=== PATIENT | female | born 1965 | race Caucasian/White ===

== ENCOUNTER → 2018-05-16 | Outpatient (CLI) | payer BC ==
[~2018-05-16] MED LIST: AMLODIPINE BESYL5 MG PO; ASPIRIN CHILDRE81 MG PO; ATENOLOL25 MG PO; LEVOTHYROXIN0.125 M1 PO; METOPROLOL TART50 M1 PO; Motrin,Rufen800 MG PO; NAPROSYN500 MG PO; PEPCID20 MG PO; PHENERGAN25 M1 PO; PRAVASTATIN SOD10 MG PO; VITAMINS FOR HA1 CAP PO; Zofran4 MG PO
[2018-05-16 08:37] LABS: CREATININE 0.77 mg/dL (0.55-1.02)
== END | disposition home or self-care (01) ==
LOC: CT 04-26 08:00 → LAB 08:08
PROVIDERS: Radiology Diagnostic Radiology
DX: K76.0 Fatty (change of) liver, not elsewhere classified (principal); N20.0 Calculus of kidney; E66.9 Obesity, unspecified; D35.00 Benign neoplasm of unspecified adrenal gland; Z85.850 Personal history of malignant neoplasm of thyroid

== ENCOUNTER 2018-08-18 09:07 | Inpatient (IN) | payer BC ==
[~2018-08-18] VITALS: Ht 167.6 cm; Wt 101.7 kg
--- NOTE | ~2018-08-18 | WRIGHTHP ---
[place], [place] PATIENT HISTORY AND PHYSICAL EXAM NAME: [id number] UNIT #: [id number] ROOM: 426 DOCTOR: MARINE FITZGERALD MD BIRTHDATE: [birth year] DOS: 08/18/2018 HISTORY OF PRESENT ILLNESS: The patient is a 53-year-old female with a past medical history of: 1. Hypertension. 2. Thyroidectomy for cancer of the thyroid and hypothyroidism. 3. History of gastroparesis. 4. Hyperlipidemia. 5. Obesity, BMI of 36.2. The patient presented to the Emergency Department with recurrent right-sided chest discomfort and tingling and numbness in her right upper extremity and lower extremity with some nausea. The patient still feels some numbness and tingling in the right upper extremity. The patient's cardiac enzymes have been negative and she has no history of coronary artery disease in her immediate family, but her dad's relatives do have coronary artery disease. REVIEW OF SYSTEMS: CARDIOVASCULAR SYSTEM: Recurrent right-sided chest pains. GASTROINTESTINAL: No nausea, vomiting, diarrhea or constipation. RESPIRATORY: No increasing shortness of breath or wheezing. ALLERGIES: Known allergies to PENICILLIN, SULFUR and VANCOMYCIN. PHYSICAL EXAMINATION: GENERAL: Alert and oriented x 3, moderately obese, in no visible distress. HEENT AND NECK: Extraocular movements are intact. Sclerae are anicteric. Oral mucosa is moist and clean. No obvious facial weakness. Neck is supple without any lymphadenopathy. No thyromegaly. No JVD. No carotid arterial bruits. LUNGS: Clear to auscultation. No wheezing. No rhonchi. CARDIOVASCULAR SYSTEM: Heart rate is regular in rate and rhythm. S1 and S2 normally audible. No significant murmur or any other abnormal cardiac sounds. ABDOMEN: Soft, nontender. No obvious organomegaly. Bowel sounds are present. No obvious herniation. EXTREMITIES: Without significant cyanosis or edema. Warm to touch. CENTRAL NERVOUS SYSTEM: Alert and oriented x 3. Cranial nerves II-XII are intact. Speech is normal. The patient is able to move all extremities. Normal muscle strength. Deep tendon reflexes are equal on both sides. Plantars were downgoing. LABORATORY DATA: Negative cardiac enzymes x 2. Normal CBC. IMPRESSION AND PLAN: 1. Chest pains from uncertain etiology. The patient's EKG and cardiac enzymes are normal. The patient has been scheduled for a cardiac stress test in the morning and if negative, she can be discharged to home safely after that. 2. Hypothyroidism. The patient continued on thyroid supplements. 3. History of benign essential hypertension. The patient already on amlodipine and metoprolol, which have been continued and her blood pressures have been normal. [place], [place] PATIENT HISTORY AND PHYSICAL EXAM NAME: MARIBEL LAWRENCE UNIT #: [id number] ROOM: 426 DOCTOR: MARINE FITZGERALD MD BIRTHDATE: [birth year] 4. Obesity. The patient with a BMI of 36, to work with Dietary. MARINE FITZGERALD MD CM:HISPHYS:PATIENT HISTORY AND PHYSICAL EXAMINATION 28 43 MARINE FITZGERALD MD 08/18/182044 interface
--- NOTE | ~2018-08-18 | EKG ---
[place], [place] ELECTROCARDIOGRAM REPORT NAME: MARIBEL LAWRENCE UNIT #: [id number] ROOM: 426 DOCTOR: STEVEN DRAFT REPORT BIRTHDATE: [birth year] [facility] Test Date: 2018-08-18 Test Time: 09:39:19 Pat Name: MARIBEL LAWRENCE Department: Room: 426 Gender: F Doughnut Maker: : 1965 Requested By: MIKE HERCULES Order Number: [id number] Reading MD: Gary Grossman MD Measurements Intervals [place] Rate: 68 P: 55 IN: 154 QRS: 17 QRSD: 107 T: 38 QT: 421 QTc: 448 Interpretive Statements Sinus rhythm RSR' in V1 or V2, right VCD or RVH Electronically Signed On 08-29-2018 8:03:41 PDT by Gary Grossman MD CM:EKGRPT:ELECTROCARDIOGRAM REPORT [id number] MIKE HOLLAND DRAFT REPORT MIKE HERCULES DO
--- NOTE | ~2018-08-18 | DS ---
[place], [place] DISCHARGE SUMMARY NAME: MARIBEL LAWRENCE UNIT #: [id number] ROOM: 426 DOCTOR: MARINE FITZGERALD MD BIRTHDATE: [birth year] DOS: 08/19/2018 HOSPITAL COURSE: The patient underwent cardiac stress test. Nuclear scan results are still pending. If normal, she will be discharged to home. Cardiac enzymes were negative. 1. Obesity, BMI of 36.2. The patient is working on diet. 2. History of gastroparesis. 3. Mixed hyperlipidemia. 4. History of thyroidectomy for cancer of the thyroid and hypothyroidism. 5. Benign essential hypertension. The patient presented with right-sided chest discomfort and tingling off and on and she was admitted. Cardiac enzymes were checked to be negative and the patient underwent cardiac stress testing. Nuclear scan results are still pending. If normal, she will be discharged to home. 6. Coronary artery disease of the [place] vessels in the family from her father's side, although father does not have any diagnosis of coronary artery disease, but it does run in her family. 7. Hypothyroidism, replaced with supplements. 8. Benign essential hypertension with controlled blood pressures with amlodipine and metoprolol. LABORATORY DATA: CT of the head was normal. Normal serum electrolytes, bilirubin, liver enzymes, normal CBC. DISCHARGE MANAGEMENT: Simvastatin 5 mg daily, aspirin 81 mg a day, amlodipine 5 mg daily, levothyroxine 125 mcg daily, metoprolol 50 mg b.i.d. MARINE FITZGERALD MD CM:CED 1005 [id number] MARINE FITZGERALD MD 08/19/18 1600 interface
--- NOTE | ~2018-08-18 | ST ---
[place], [place] EXERCISE STRESS TEST REPORT NAME: MARIBEL LAWRENCE UNIT #: [id number] ROOM: 426 DOCTOR: MARINE FITZGERALD MD BIRTHDATE: [birth year] DOS: 08/19/2018 The patient is a 53-year-old female, presently admitted to [place] [facility] for recurrent chest pains. All her cardiac enzymes were negative and the patient was exercised on a Glenn protocol. She exercised for a total of 8 minutes, reaching a peak heart rate of 157 beats per minute, which was 93% of the PMHR. The Cardiolite was injected during the peak phase of exercise. Maximum blood pressure was 178 systolic over 88 diastolic. The patient's peak MET level was 10. The patient's baseline EKG showed normal sinus rhythm at the heart rate of 69 beats per minute. Normal cardiac axis, no significant ST-T abnormality. During the exercise and recovery phase, the patient did not develop any EKG abnormality compatible with myocardial ischemia. There were no angina-like symptoms. IMPRESSION: Normal EKG part of the treadmill Cardiolite stress test at 93% PMHR. Cardiolite results to be reported by Dr. Villalba later today. MARINE FITZGERALD MD CM:STRESS:EXERCISE STRESS TEST REPORT [id number] MARINE FITZGERALD MD
[2018-08-18 09:10] VITALS: BP 129/76
[2018-08-18 09:47] LABS: BASO # 0.1 10*3/uL (0.0-0.1); BASO % 0.6 % (0.0-1.0); EOS # 0.2 10*3/uL (0.0-0.4); EOS % 2.5 % (1.0-4.0); HEMATOCRIT 43.9 % (37.0-47.0); HEMOGLOBIN 14.8 g/dl (12.0-16.0); LYMPH # 1.8 10*3/uL (1.3-4.4); MEAN CELL VOLUME 90.3 fl (81.0-99.0); MEAN CORPUSCULAR HGB 30.5 pg (27.0-31.0); MEAN CORPUSCULAR HGB CONC 33.7 g/dl (33.0-37.0); MEAN PLATELET VOLUME 10.6 fl (9.6-12.3); MONO # 0.5 10*3/uL (0.1-1.0); MONO % 5.9 % (3.0-9.0); NEUT # 5.3 10*3/uL (2.3-7.9); NEUT % 67.7 % (47.0-73.0); PLATELET COUNT AUTOMATED 258 10*3/uL (130-400); RED BLOOD COUNT 4.86 10*6/uL (4.10-5.10); RED CELL DISTRI WIDTH 12.4 % (0-14.5); WHITE BLOOD COUNT 7.9 10*3/uL (4.8-10.8)
[2018-08-18 09:59] LABS: ACT PARTIAL THROMBO TIME 25.1 SECONDS (20.8-31.5)
[2018-08-18 10:03] LABS: ALKALINE PHOSPHATASE 103 U/L (45-117); BUN 12 mg/dl (7-24); CHLORIDE 103 mmol/L (98-107); CREATININE 0.78 mg/dL (0.55-1.02); LIPASE 96 U/L (73-393); POTASSIUM 3.6 mmol/L (3.5-5.1); SGOT/AST 36 IU/L (3-35); SGPT/ALT 65 U/L (12-78); SODIUM 139 mmol/L (136-145); TOTAL PROTEIN 7.9 gm/dL (6.4-8.2); TROPONIN I < 0.015 ng/ml (<0.045)
[2018-08-18 11:46] VITALS: BP 141/79
[2018-08-18 12:14] VITALS: BP 157/95
[2018-08-18 12:30] VITALS: BP 157/95
[2018-08-18 16:00] VITALS: BP 130/72
[2018-08-18 20:00] VITALS: BP 128/63
[2018-08-19] VITALS: BP 113/51
[2018-08-19 08:00] VITALS: BP 130/74
== END 2018-08-19 14:56 | disposition home or self-care (01) | DRG 313 ==
LOC: ED 09:07 → EDHOLD 11:40 → 4E 11:40
PROVIDERS: Emergency Medicine
PROC: 4A02XM4 Measurement of Cardiac Total Activity, External Approach (ICD-10-PCS; principal; 2018-08-19)
DX: R07.9 Chest pain, unspecified (principal); I10 Essential (primary) hypertension; E78.2 Mixed hyperlipidemia; E66.9 Obesity, unspecified; E03.9 Hypothyroidism, unspecified; Z85.850 Personal history of malignant neoplasm of thyroid; Z82.49 Family history of ischemic heart disease and other diseases of the circulatory system; Z88.0 Allergy status to penicillin; Z88.2 Allergy status to sulfonamides; Z88.1 Allergy status to other antibiotic agents; Z79.899 Other long term (current) drug therapy; Z68.36 Body mass index [BMI] 36.0-36.9, adult; Z79.82 Long term (current) use of aspirin

== ENCOUNTER → 2018-11-17 | Outpatient (CLI) | payer OTHER | END | disposition home or self-care (01) | LOC: MAMMO 08:00 | DX: Z12.31 Encounter for screening mammogram for malignant neoplasm of breast (principal); R92.8 Other abnormal and inconclusive findings on diagnostic imaging of breast ==

== ENCOUNTER → 2019-10-04 | Outpatient (CLI) | payer OTHER | END | disposition home or self-care (01) | LOC: RAD 17:49 | DX: R05 Cough (principal); R53.83 Other fatigue; J40 Bronchitis, not specified as acute or chronic ==

== ENCOUNTER 2020-08-19 16:28 | Inpatient (IN) | payer OTHER ==
[~2020-08-19] VITALS: Ht 167.6 cm; Wt 103.1 kg
[2020-08-19 16:35] VITALS: BP 137/85
[2020-08-19 17:17] LABS: BASO % 0.6 % (0.0-1.0); EOS # 0.2 10*3/uL (0.0-0.4); EOS % 5.5 % (1.0-4.0); HEMATOCRIT 44.6 % (37.0-47.0); LYMPH # 1.3 10*3/uL (1.3-4.4); LYMPH % 36.9 % (27.0-41.0); MEAN CELL VOLUME 88.5 fl (81.0-99.0); MEAN CORPUSCULAR HGB 28.8 pg (27.0-31.0); MEAN CORPUSCULAR HGB CONC 32.5 g/dl (33.0-37.0); MEAN PLATELET VOLUME 10.7 fl (9.6-12.3); MONO # 0.4 10*3/uL (0.1-1.0); MONO % 12.1 % (3.0-9.0); NEUT # 1.6 10*3/uL (2.3-7.9); NEUT % 44.6 % (47.0-73.0); PLATELET COUNT AUTOMATED 210 10*3/uL (130-400); RED BLOOD COUNT 5.04 10*6/uL (4.10-5.10); RED CELL DISTRI WIDTH 12.6 % (0-14.5); WHITE BLOOD COUNT 3.5 10*3/uL (4.8-10.8)
[2020-08-19 17:32] LABS: ALBUMIN 3.7 gm/dl (3.1-4.5); ALKALINE PHOSPHATASE 82 U/L (45-117); BUN 13 mg/dl (7-24); CHLORIDE 105 mmol/L (98-107); CREATININE 0.74 mg/dL (0.55-1.02); LDH 203 U/L (84-246); POTASSIUM 3.4 mmol/L (3.5-5.1); SGOT/AST 59 IU/L (3-35); SGPT/ALT 90 U/L (12-78); SODIUM 140 mmol/L (136-145); TOTAL PROTEIN 7.7 gm/dL (6.4-8.2)
[2020-08-19 17:34] LABS: TROPONIN I < 0.015 ng/ml (<0.045)
[2020-08-19 19:55] LABS: ABG BASE EXCESS 2.4 mmol/L (-2.0-2.0); ARTERIAL BLOOD GAS PH 7.409 (7.35-7.45)
[2020-08-19 20:28] VITALS: BP 166/84
[2020-08-19 20:40] VITALS: BP 146/92
--- NOTE | 2020-08-19 20:40 | NUR ---
A 55, admitted to , under the services of WU Mills DO with a diagnosis of COVID-19. Chief complaint is SOB, DRY COUGH. Patient arrived via WHEELCHAIR from ER. Monitor applied. Initial assessment completed. Vital signs taken and recorded. WU MILLS DO notified of admission to the unit. Orders received. See assessment for past medical history, medications and allergies. Patient and/or family oriented to unit. [address] visitation policy reviewed. Clothing/patient valuable form completed. KRYSTEN BURNETT
--- NOTE | 2020-08-19 21:34 | NUR ---
NOTIFIED OF NEW CONSULT. NEW ORDERS RECEIVED.
--- NOTE | 2020-08-19 22:15 | NUR ---
NOTIFIED MED REC UP TO DATE.
[2020-08-20] VITALS: BP 127/61
--- NOTE | 2020-08-20 03:46 | NUR ---
24 HR chart check completed.
[2020-08-20 06:23] LABS: BASO % 0.3 % (0.0-1.0); HEMATOCRIT 47.4 % (37.0-47.0); LYMPH # 0.7 10*3/uL (1.3-4.4); LYMPH % 20.1 % (27.0-41.0); MEAN CELL VOLUME 90.5 fl (81.0-99.0); MEAN CORPUSCULAR HGB 29.2 pg (27.0-31.0); MEAN CORPUSCULAR HGB CONC 32.3 g/dl (33.0-37.0); MEAN PLATELET VOLUME 10.7 fl (9.6-12.3); MONO # 0.1 10*3/uL (0.1-1.0); MONO % 2.4 % (3.0-9.0); NEUT # 2.5 10*3/uL (2.3-7.9); NEUT % 76.9 % (47.0-73.0); PLATELET COUNT AUTOMATED 233 10*3/uL (130-400); RED BLOOD COUNT 5.24 10*6/uL (4.10-5.10); RED CELL DISTRI WIDTH 12.7 % (0-14.5); WHITE BLOOD COUNT 3.3 10*3/uL (4.8-10.8)
[2020-08-20 06:57] LABS: ALBUMIN 3.8 gm/dl (3.1-4.5); BUN 13 mg/dl (7-24); CHLORIDE 106 mmol/L (98-107); CHOLESTEROL 120 mg/dL (<200); LDH 201 U/L (84-246); POTASSIUM 3.7 mmol/L (3.5-5.1); SODIUM 140 mmol/L (136-145); TRIGLYCERIDES 74 mg/dl (<150); VLDL CHOLESTEROL 15 mg/dL (6-40)
[2020-08-20 07:05] LABS: ALKALINE PHOSPHATASE 84 U/L (45-117); CPK 74 U/L (26-192); CREATININE 0.81 mg/dL (0.55-1.02); FREE T4 1.42 ng/dl (0.76-1.46); HDL CHOLESTEROL 37 mg/dl (40-60); LDL CHOLESTEROL 68 mg/dL (9-159); SGOT/AST 47 IU/L (3-35); SGPT/ALT 86 U/L (12-78); THYROID STIM HORMONE (HS) 0.022 uIU/ml (0.358-4.75); TOTAL PROTEIN 8.2 gm/dL (6.4-8.2)
[2020-08-20 07:45] LABS: FERRITIN 292.9 ng/mL (10.0-291.0); VITAMIN D, 25-HYDROXY 29.5 ng/mL (30-100)
[2020-08-20 08:00] VITALS: BP 149/75
[2020-08-20 08:19] LABS: ABG BASE EXCESS 1.7 mmol/L (-2.0-2.0); ARTERIAL BLOOD GAS PH 7.409 (7.35-7.45)
--- NOTE | 2020-08-20 09:00 | NUR ---
Mop Maker in to talk to patient. Patient states lives at home with . There are no steps in the home. Physician: miah Pharmacy: [facility]: none Patient's level of ADLs: INDEPENDENT Patient has working utilities: all working DME: none Follow-up physician's appointment after d/c: will be made by hospitalist nurse director upon discharge Does patient want to access PORTAL?: no Discharge plan discussed with patient, she lives at home with , she is independent in adls and ambulation, works, drives. she states she will return home when discharged and denies any home needs, case management received a call from Mariangel, case management assistant from [facility] regarding patient being admitted to this facility. report of patient's condition given. Mariangel stated she would call case management tomorrow regarding patient.. SAIDA PUGA
--- NOTE | 2020-08-20 09:59 | NUR ---
NOTIFIED OF CONSULT
[2020-08-20 16:00] VITALS: BP 133/72
[2020-08-20 20:00] VITALS: BP 106/75
--- NOTE | 2020-08-20 21:00 | NUR ---
IN TO ASSESS PATIENT. PATIENT PLEASANT AND COOPERATIVE. PATIENT STATES SHE FEELS PRETTY GOOD. 2L NC INTACT. PATIENT STATES DR. AVILA WANTED HER HERE FOR OBSERVATION TO KEEP AN EYE ON HER PULSE OX. PATIENT STATES SHE HAS BEEN OFF AND ON PRONING. THE LONGEST FOR 1 HOUR. NO COMPLAINTS VOICED. PATIENT STATED THAT SHE HAS BEEN UP AMBULATING IN THE ROOM MUCH SHE CAN WHEN SHE DOESN'T FEEL TOO SHORT OF BREATH. PATIENT VOICES NO OTHER COMPLAINTS. DENIES NEED FOR ANYTHING. CALL LIGHT WTIHIN REACH, WILL MONITOR
--- NOTE | 2020-08-20 21:00 | NUR ---
PATIENTS IV BOTHERING HER. PATIENT STATES IT JUST DOESN'T FEEL RIGHT. ATTEMPTED X2 FOR NEW IV. UNSUCCESSFUL. WILL HAVE OTHER NURSE RETRY.
--- NOTE | 2020-08-20 22:00 | NUR ---
NEW IV SITE IN RIGHT FOREARM. OLD IV SITE REMOVED. PATIENT STATES IT FEELS MUCH BETTER. AZITHROMYCIN NOW REINFUSING WITHOUT PROBLEM
[2020-08-21] VITALS: BP 121/76
--- NOTE | 2020-08-21 03:40 | NUR ---
24 HR chart check completed.
--- NOTE | 2020-08-21 03:40 | NUR ---
PATIENT SLEEPING, NO DISTRESS NOTED. BREATHING IS EASY AND REGULAR ON 2L NC. CALL LIGHT WITHIN REACH, WILL MONITOR
[2020-08-21 05:33] LABS: BUN 13 mg/dl (7-24); CHLORIDE 108 mmol/L (98-107); CREATININE 0.71 mg/dL (0.55-1.02); POTASSIUM 3.8 mmol/L (3.5-5.1); SODIUM 141 mmol/L (136-145)
[2020-08-21 05:49] LABS: BASO % 0.1 % (0.0-1.0); HEMATOCRIT 44.6 % (37.0-47.0); LYMPH # 1.3 10*3/uL (1.3-4.4); LYMPH % 15.6 % (27.0-41.0); MEAN CELL VOLUME 89.2 fl (81.0-99.0); MEAN CORPUSCULAR HGB 28.6 pg (27.0-31.0); MEAN CORPUSCULAR HGB CONC 32.1 g/dl (33.0-37.0); MONO # 0.5 10*3/uL (0.1-1.0); MONO % 6.2 % (3.0-9.0); NEUT # 6.3 10*3/uL (2.3-7.9); NEUT % 77.7 % (47.0-73.0); PLATELET COUNT AUTOMATED 262 10*3/uL (130-400); RED CELL DISTRI WIDTH 12.5 % (0-14.5); WHITE BLOOD COUNT 8.1 10*3/uL (4.8-10.8)
[2020-08-21 08:00] VITALS: BP 147/61
--- NOTE | 2020-08-21 08:07 | NUR ---
24 HR chart check completed.
[2020-08-21 12:00] VITALS: BP 138/72
--- NOTE | 2020-08-21 12:03 | NUR ---
case management received a message to check on eliquis for discharge. case management contacted [facility], spoke to pharmacist. he stated patient's cost will be $55. case management contacted patient and educated her on the cost of the medication. she stated she would be able to afford this. case management notified hospitalist nurse director and patient's nurse. case management will follow for any other home needs
--- NOTE | 2020-08-21 15:45 | NUR ---
Discharge instructions reviewed with patient/family. Patient receptive and verbalizes understanding. Follow-up care arranged. Written instructions given to patient/family. HISSOM,BRENT Discharge instructions reviewed with patient/family. Patient receptive and verbalizes understanding. Follow-up care arranged. Written instructions given to patient/family. HISSOM,BRENT The Discharge Plan/Instructions have been completed.
== END 2020-08-21 15:45 | disposition home or self-care (01) | DRG 871 ==
LOC: ED 16:28 → EDHOLD 19:04 → 4E 19:04
PROVIDERS: Family Medicine; Internal Medicine; Internal Medicine Critical Care Medicine; Student in an Organized Health Care Education/Training Program; ADMIT Internal Medicine; ATTEND Internal Medicine
DX: A41.9 Sepsis, unspecified organism (principal); J96.01 Acute respiratory failure with hypoxia; U07.1 COVID-19; J12.89 Other viral pneumonia; J45.901 Unspecified asthma with (acute) exacerbation; D68.59 Other primary thrombophilia; E87.6 Hypokalemia; E83.41 Hypermagnesemia; R74.01 Elevation of levels of liver transaminase levels; I10 Essential (primary) hypertension; K21.9 Gastro-esophageal reflux disease without esophagitis; E66.9 Obesity, unspecified; J42 Unspecified chronic bronchitis; E03.9 Hypothyroidism, unspecified; E11.9 Type 2 diabetes mellitus without complications; E78.5 Hyperlipidemia, unspecified; Z88.0 Allergy status to penicillin; Z88.2 Allergy status to sulfonamides; Z88.1 Allergy status to other antibiotic agents; Z88.8 Allergy status to other drugs, medicaments and biological substances; Z79.899 Other long term (current) drug therapy; Z68.36 Body mass index [BMI] 36.0-36.9, adult

== ENCOUNTER → 2020-09-02 | Outpatient (CLI) | payer BC ==
[2020-09-02 11:52] LABS: HEMATOCRIT 43.9 % (37.0-47.0); MEAN CORPUSCULAR HGB 29.3 pg (27.0-31.0); MEAN CORPUSCULAR HGB CONC 32.6 g/dl (33.0-37.0); MEAN PLATELET VOLUME 10.5 fl (9.6-12.3); RED BLOOD COUNT 4.88 10*6/uL (4.10-5.10); RED CELL DISTRI WIDTH 12.8 % (0-14.5); WHITE BLOOD COUNT 10.5 10*3/uL (4.8-10.8)
[2020-09-02 12:23] LABS: ALBUMIN 3.5 gm/dl (3.1-4.5); ALKALINE PHOSPHATASE 82 U/L (45-117); BUN 13 mg/dl (7-24); CHLORIDE 106 mmol/L (98-107); CHOLESTEROL 139 mg/dL (<200); CREATININE 0.78 mg/dL (0.55-1.02); FREE T4 1.35 ng/dl (0.76-1.46); GAMMA GLUTAMYL TRANSPEPTIDASE 37 U/L (5-55); HDL CHOLESTEROL 63 mg/dl (40-60); LDL CHOLESTEROL 55 mg/dL (9-159); POTASSIUM 4.1 mmol/L (3.5-5.1); SGOT/AST 19 IU/L (3-35); SGPT/ALT 37 U/L (12-78); SODIUM 141 mmol/L (136-145); TOTAL PROTEIN 7.7 gm/dL (6.4-8.2); TRIGLYCERIDES 105 mg/dl (<150); VLDL CHOLESTEROL 21 mg/dL (6-40)
[2020-09-02 12:27] LABS: THYROID STIM HORMONE (HS) 0.096 uIU/ml (0.358-4.75)
[2020-09-02 13:01] LABS: VITAMIN D, 25-HYDROXY 29.4 ng/mL (30-100)
[2020-09-03 12:11] LABS: HEP B CORE AB, IGM Negative (Negative); HEPATITIS B SURFACE AG Negative (Negative); HEPATITIS C VIRUS ANTIBODY <0.1 s/co (0.0-0.9)
== END | disposition home or self-care (01) ==
LOC: LAB 11:33
PROVIDERS: ATTEND Family Medicine
DX: U07.1 COVID-19 (principal); E55.9 Vitamin D deficiency, unspecified; E74.9 Disorder of carbohydrate metabolism, unspecified; E78.00 Pure hypercholesterolemia, unspecified; R53.83 Other fatigue

== ENCOUNTER → 2022-07-27 | Outpatient (CLI) | payer OTHER | END | disposition home or self-care (01) | LOC: MAMMO 11:00 | PROVIDERS: ATTEND Family Medicine | DX: Z12.31 Encounter for screening mammogram for malignant neoplasm of breast (principal) ==

== ENCOUNTER 2024-12-13 10:46 | Emergency (ER) | payer OTHER ==
[~2024-12-13] VITALS: Wt 108.9 kg
[2024-12-13] MEDS ORDERED: SODIUM CHLORIDE 0.9% 1,000 ML IV ONE ×2 (12:05→13:40)
[2024-12-13] MEDS ORDERED: HYDROmorphONE Hydrochloride 0.5 MG/0.5 ML SYRINGE IV ONE ×2 (12:05→14:15)
[2024-12-13] MEDS ORDERED: Ondansetron Hydrochloride 4 MG/2 ML VIAL IV ONE ×2 (12:05→15:10)
[2024-12-13 12:52] LABS: BASO % 0.2 % (0.0-1.0); HEMATOCRIT 45.8 % (37.0-47.0); MEAN CELL VOLUME 89.3 fl (81.0-99.0); MEAN CORPUSCULAR HGB 29.4 pg (27.0-31.0); MEAN PLATELET VOLUME 10.2 fl (9.6-12.3); MONO # 0.6 10*3/uL (0.1-1.0); MONO % 5.9 % (3.0-9.0); NEUT # 8.2 10*3/uL (2.3-7.9); NEUT % 86.1 % (47.0-73.0); PLATELET COUNT AUTOMATED 255 10*3/uL (130-400); RED BLOOD COUNT 5.13 10*6/uL (4.10-5.10); RED CELL DISTRI WIDTH 12.1 % (0-14.5); WHITE BLOOD COUNT 9.5 10*3/uL (4.8-10.8)
[2024-12-13 13:17] LABS: POTASSIUM 3.7 mmol/L (3.4-5.1); TOTAL PROTEIN 7.6 gm/dL (6.0-8.0)
[2024-12-13] MEDS ORDERED: Ketorolac Tromethamine 15 MG/ML VIAL IV ONE (15:10)
[2024-12-13] MEDS ORDERED: HYDROCODONE-AC1 EAC1 PO (15:53)
[2024-12-13] MEDS ORDERED: FLOMAX0.4 MG PO (15:53)
[2024-12-13] MEDS ORDERED: CIPRO500 MG PO (15:53)
[2024-12-13] MEDS ORDERED: Ondansetron4 MG PO (15:53)
[2024-12-13] MEDS ORDERED: Tamsulosin Hydrochloride 0.4 MG CAP PO ONE (16:00)
[2024-12-13] MEDS ORDERED: Ciprofloxacin Hydrochloride 500 MG TAB PO ONE (16:00)
== END 2024-12-13 16:32 | disposition home or self-care (01) ==
LOC: ED 10:46
PROVIDERS: Nurse Practitioner Family
DX: N13.2 Hydronephrosis with renal and ureteral calculous obstruction (principal); R11.2 Nausea with vomiting, unspecified; E78.5 Hyperlipidemia, unspecified; I10 Essential (primary) hypertension; E03.9 Hypothyroidism, unspecified; Z88.0 Allergy status to penicillin; Z88.2 Allergy status to sulfonamides; Z88.1 Allergy status to other antibiotic agents; Z91.048 Other nonmedicinal substance allergy status; Z98.890 Other specified postprocedural states

== ENCOUNTER → 2025-03-14 | Outpatient (CLI) | payer OTHER ==
[~2025-03-14] MED LIST changes: +CIPRO500 MG PO; +FLOMAX0.4 MG PO; +HYDROCODONE-AC1 EAC1 PO; +Ondansetron4 MG PO
== END | disposition home or self-care (01) ==
LOC: MAMMO 07:23
PROVIDERS: ATTEND Nurse Practitioner Family
DX: Z12.31 Encounter for screening mammogram for malignant neoplasm of breast (principal); R92.323 Mammographic fibroglandular density, bilateral breasts; N63.10 Unspecified lump in the right breast, unspecified quadrant